=== PATIENT | female | born 1965 | race Caucasian/White ===

== ENCOUNTER 2017-02-19 13:19 | Emergency (ER) | payer OTHER ==
[~2017-02-19] VITALS: Ht 157.5 cm; Wt 58.5 kg
[2017-02-19] MEDS ORDERED: ESCITALOPRAM20 MG PO (13:32)
[2017-02-19] MEDS ORDERED: AMPHETAMINE SAL10 MG PO (13:32)
[2017-02-19] MEDS ORDERED: VITAMIN D31000 IU PO (13:33)
[2017-02-19] MEDS ORDERED: CENTRUM SILVER1 EAC1 PO (13:33)
--- NOTE | 2017-02-19 13:33 | Urgent Treatment Center Report ---
History of Present Issue Date/Time Seen by Provider 02/19/17 1337 Visit Reason Pt arrived:Walked Presenting Problem:PT STATES HAVING A COLD LAST WEEK. STATES NOW SHE IS HOARSE, COUGH, RUNNY NOSE WITH YELLOW DRAINAGE, BRENNA EAR FULLNESS AND HEAD CONGESTION Location if Accident: Onset of symptoms date/time:/ or onset unknown for:MEDICAL HX UNKNOWN Have you (or family members/close friends) recently traveled outside the [place]? N If Yes, where/when: Have you had exposure to infectious disease within the past month? TB? Other? Specify: Source patient Exam Limitations no limitations Comment 51-year-old female presents today for sore throat and green nasal congestion, sinus pressure, and hoarseness that started a few days ago. Has been exposed to strep ALLERGIES Coded Allergies: Macrolide Antibiotics (11/06/15) Penicillins (11/06/15) clarithromycin (From BIAXIN) (02/19/17) Home Medications Reported Medications Escitalopram Oxalate 20 MG PO DAILY #90 DEXTROAMPHETAMINE/AMPHETAMINE (Amphetamine Salts 10 MG Tablet) 10 MG PO DAILY #60 CHOLECALCIFEROL (VITAMIN D3) (Vitamin D) 1,000 IUNITS PO DAILY Multivits-Min/Iron/FA/Lutein (Centrum Silver Women Tablet) 1 EACH PO DAILY History Medical History General Angina: No SC: No Hypertension? No Hyperlipidemia? No CHF? No COPD? No Asthma? No Hernia? Yes CVA? No Seizures? No Diabetes? No UTI? Yes Stones? No GB Disease: No Hepatitis? No Cataracts? No Glaucoma? No TB? No Cancer? No Immunization HX DT/Tetanus > 10 YRS Flu LAST YEAR Pneumonia NEVER Surgical Hx Previous Surgery?Y HERNIA BRENNA ING DX LSC LASER, [facility] Family History Family HX Diabetes No CAD Yes Hypertension Yes Hyperlipidemia Yes Cancer Yes TB No Social History Alcohol Alcohol: No Review of Systems All Other Systems Reviewed and Negative ENT see HPI, nose congestion. Respiratory see HPI, cough Cardiovascular denies no symptoms reported Physical Exam Vital Signs Vital Signs Date Time Temp Pulse Resp B/P Pulse O2 O2 Flow FiO2 Ox Delivery Rate 02/19 1330 98.5 72 20 129/78 99 - WBC >12,000 or <4,000 or 10% bands? 2 or more SIRS Criteria Met? B/P:129/78 MAP:95 Creatinine >2.0? UA output<0.5ml/kg/hr for 2 hrs? Platelet count >100,000? Lactate >2.0mmol/1? INR >1.2 or PTT > than 60 sec? Evidence of Organ Dysfunction? Provider documented clinical suspician of infection? Sepsis Criteria Count: 1 Sepsis Risk: General Appearance normal appearance, no apparent distress Eye Exam - bilateral eye normal exam, bilateral eye PERRL, bilateral eye EOMI Ear, Nose, Throat sinus pain/drainage, nasal congestion, pharyngeal erythema Neck normal inspection, full range of motion Respiratory Status Yes: trachea midline, chest symmetrical, non tender chest. No: respiratory distress. Lung Sounds bilateral: normal breath sounds, lungs clear. Cardiovascular normal exam, regular rate/rhythm Neurologic alert, normal exam, oriented x 3 Medical Decision Making LABS/Meds/Orders Pt receiving controlled substance in ED? No Results/Orders Current Medication Orders Sig/Seamus Start time Last Medication Dose Route Stop Time Status Admin Dexamethasone Sodium 4 MG ONCE ONE 02/19 1345 AC 02/19 Phosphate IM 02/19 1346 1344 Dexamethasone Sodium 0 .STK-MED ONE 02/19 1343 DC Phosphate .ROUTE Departure Departure Time of Disposition 1340 Disposition DC Home or Self Care(routine) Clinical Impression Primary Impression: Sinusitis Qualifiers: Sinusitis location: maxillary Chronicity: acute Recurrence: non- recurrent Qualified Code: J01.00 - Acute maxillary sinusitis, unspecified Condition STABLE Referrals Mark NAVA,Jabari Carroll (Family) Patient Instructions DI for Sinusitis, Sinusitis Additional Instructions Starts to repack tomorrow Medications as ordered Follow-up primary care this week if symptoms don't improve Tylenol Motrin as needed for pain or fever Return to be seen in the ER if symptoms worsen or do not improve Discharge Counseling Counseled pt/family regarding diagnosis, medications/RX, home care, follow up needs Prescriptions Current Visit Scripts Azithromycin (Zithromax) 250 MG PO DAILY 5 Days USE DIRECTED. Fluticasone Propionate (Flonase Allergy Relief) 9.9 ML NS DAILY 14 Days
[2017-02-19] MEDS ORDERED: ZITHROMAX Z-PA250 M2 PO (13:44)
[2017-02-19] MEDS ORDERED: FLONASE ALLERG9.9 ML NS (13:44)
[2017-02-19 13:49] VITALS: BP 129/78
== END 2017-02-19 14:01 | disposition home or self-care (01) ==
LOC: UTC 13:19
DX: J01.00 Acute maxillary sinusitis, unspecified (principal)

== ENCOUNTER → 2017-05-01 | Emergency (ER) | payer OTHER ==
[~2017-05-01] VITALS: Ht 157.5 cm; Wt 61.2 kg
[~2017-05-01] MED LIST: AMPHETAMINE SAL10 MG PO; CENTRUM SILVER1 EAC1 PO; ESCITALOPRAM20 MG PO; FLONASE ALLERG9.9 ML NS; PROMETHAZINE D118 ML PO; VITAMIN D31000 IU PO; ZITHROMAX Z-PA250 M2 PO
--- OUTSIDE RECORDS SUMMARY | 2017-05-01 14:46 | External Medical Summary Rpt | CCD ---
Author Author , GISELLE DESAI Address Unknown Phone [email or web address] Immunization Name Date Rout CVX Reac Dose Comm Prov Is Faci e tion ent ider Refu lity Give sed n Infl 10-2 150 0.5 Hist GSHA No GSHA uenz 0-20 mL oric NE NE a 17 al Quad Info Inj rmat ion - Sour ce Unsp ecif ied Td 03-0 Intr 9 999 Hist H149 No H149 (jagdish 9-19 amus oric lt), 97 cula al r Info adso rmat rbed ion - Sour ce Unsp ecif ied
--- OUTSIDE RECORDS SUMMARY | 2017-05-01 14:46 | External Medical Summary Rpt | CCD ---
Author Author , MAXIMO DESAI Address Unknown Phone .[employer] Purpose Continuity of Care Document - 10-29-2016 through 2016 Results Labs Lab Lab Date Result Refere Interp Status Commen Order Detail nces retati t Range on Drugs identified in Urine by Screen method (10-29-2016 10:20) Ampheta NEGATIV <1000 complet mine 017 E ed [Presen 10:20 ce] in Urine by Screen method NEGATIV <50 complet oxy 017 E ed delta-9 10:20 tetrahy drocann abinol [Presen ce] in Unspeci fied specime n
--- OUTSIDE RECORDS SUMMARY | 2017-05-01 14:46 | External Medical Summary Rpt ---
Author Author GISELLE Gray, [employer] Organization [employer] Address Unknown Phone Unavailable Results Drugs identified in Urine by Screen method Observa Value Referen Units Interpr Notes Date tion ce etation Range Positive urine drug screen samples are stored for 7 days. Contact the Lab if confirmation of positives is needed. Ampheta NEGATIV <1000 ng/mL No No October 29 mine E informa informa 2017 [Presen tion in tion in 10:20 ce] in source source AM Urine data data by Screen method Barbitura <200 ng/mL No No October 29 lulu informati informati 2017 [Mass/vol on in on in 10:20 AM ume] in source source Urine by data data Screen method Benzodiaz 200 ng/mL ng/mL No No October 29 epines informati informati 2017 [Mass/vol on in on in 10:20 AM ume] in source source Serum or data data Plasma by Screen method Cocaine <300 ng/g No No October 29 [Mass/vol informati informati 2016 ume] in on in on in 10:20 AM Unspecifi source source ed data data specimen Methadone <300 ng/mL No No October 29 informati informati 2017 [Mass/vol on in on in 10:20 AM ume] in source source Unspecifi data data ed specimen Opiates <300 ng/mL No No October 29 [Mass/vol informati informati 2017 ume] in on in on in 10:20 AM Unspecifi source source ed data data specimen Phencycli <25 ng/mL No No October 29 dine informati informati 2016 [Mass/vol on in on in 10:20 AM ume] in source source Unspecifi data data ed specimen 11-Hydr NEGATIV <50 ng/mL No No October 29 oxy E informa informa 2017 delta-9 tion in tion in 10:20 source source AM tetrahy data data drocann abinol [Presen ce] in Unspeci fied specime n
--- OUTSIDE RECORDS SUMMARY | 2017-05-01 14:46 | External Medical Summary Rpt | CCD ---
Author Author , MAXIMO DESAI Address Unknown Phone [email or web address] Purpose Continuity of Care Document - 10-29-2016 [...]
--- OUTSIDE RECORDS SUMMARY | 2017-05-01 14:46 | External Medical Summary Rpt | CCD ---
Author Author , GISELLE DESAI Address Unknown Phone [email or web address] Immunization Name Date Rout CVX Reac Dose [...]
--- NOTE | 2017-05-01 15:32 | Urgent Treatment Center Report ---
History of Present Issue Date/Time Seen by Provider 05/01/17 1531 Visit Reason Pt arrived:Walked Presenting Problem:PT C/O COUGH AND DRAINAGE FOR THE PAST COUPLE OF DAYS Location if Accident: Onset of symptoms date/time:/ or onset unknown for:MEDICAL HX UNKNOWN Have you (or family members/close friends) recently traveled outside the [place]? N If Yes, where/when: Have you had exposure to infectious disease within the past month? TB? Other? Specify: c/o dry hacking cough at night. "I wouldn't be here if my would quit complaining". Cough starting 4-5 days ago w/ tickle in throat. Denies any other persistant or nagging symptoms. "Really just the cough". No SOA, wheezing, fever. Minimal cough throughout day. Waking pt up at night "but I just roll over and go back to sleep". Spouse not sleeping at all. Hasn't taken or tried anything for symptoms. No known sick contacts. Source patient Exam Limitations no limitations ALLERGIES Coded Allergies: Macrolide Antibiotics (11/06/15) Penicillins (11/06/15) clarithromycin (From BIAXIN) (02/19/17) Home Medications Reported Medications Escitalopram Oxalate 20 MG PO DAILY #90 DEXTROAMPHETAMINE/AMPHETAMINE (Amphetamine Salts 10 MG Tablet) 10 MG PO DAILY #60 History Medical History General CAD? No Angina: No MT: No Hypertension? No Hyperlipidemia? No CHF? No DVT? No PE? No COPD? No Asthma? No Anemia? No GERD? No Gastric ulcers? No GI Bleed? No Hernia? Yes Thyroid Problems? No Hypothyroidism? No CVA? No Seizures? No Diabetes? No Renal Insuffiency? No UTI? Yes Stones? No BPH? No GB Disease: No Nephritic Syndrome? No Asplenia? No Hepatitis? No Sickle Cell Disease? No Arthritis? No Migraines? No Cataracts? No Glaucoma? No MRSA? No HIV? No TB? No Anxiety? No Depression? No Cancer? No Immunization HX DT/Tetanus > 10 YRS Flu LAST YEAR Pneumonia NEVER Surgical Hx Previous Surgery?Y HERNIA BRENNA ING DX LSC LASER, [facility] Family History Family HX Diabetes No CAD Yes Hypertension Yes Hyperlipidemia Yes Cancer Yes TB No Social History Smoking Hx Smoker: Never Smoker Tobacco: No Alcohol Alcohol: No Review of Systems All Other Systems Reviewed and Negative Constitutional see HPI, denies chills, denies malaise ("I feel just fine") Eyes denies drainage ENT see HPI, nose discharge ("maybe a little here & There"). denies: ear pain, nose congestion, throat pain, throat swelling. Respiratory see HPI Cardiovascular denies chest pain Musculoskeletal denies joint pain Skin denies rash Psychiatric/Neurological denies headache Physical Exam Vital Signs Vital Signs Date Time Temp Pulse Resp B/P Pulse O2 O2 Flow FiO2 Ox Delivery Rate 05/01 1558 98.5 87 16 130/77 98 05/01 1519 98.5 87 16 130/77 98 General Appearance normal appearance, no apparent distress Eye Exam - bilateral eye normal exam Ear, Nose, Throat normal ENT inspection Neck non-tender, supple Respiratory Status Yes: trachea midline, non productive cough (once). No: respiratory distress, use of accessory muscles, pain on inspiration, pain on expiration. Lung Sounds anterior: lungs clear. posterior: lungs clear. bilateral: lungs clear. Cardiovascular regular rate/rhythm, no peripheral edema, no murmur Neurologic alert, oriented x 3 Mental status normal mood/affect Skin normal color, warm/dry Lymphatic no adenopathy Medical Decision Making LABS/Meds/Orders Pt receiving controlled substance in ED? No Departure Departure Time of Disposition 1554 Disposition DC Home or Self Care(routine) Clinical Impression Primary Impression: Cough Condition STABLE Referrals Mark NAVA,Jabari Carroll (Family) IMMEDIATELY for new or worsening symptoms OR no noticeable improvement with prescribed medication. 911 for difficulty breathing. Patient Instructions DI for Cough -- Adult Additional Instructions * Promethazine DM cough syrup will cause drowsiness. Use it only at night. No driving, operating machinery or caring for small children after taking it. * No sign of bacterial infection. Likely viral. Virus can take 7-14 days to run their course and the cough can be the last thing to fade * Be sure to follow up if fevers, shortness of breath or wheezing develops, cough changes to productive Discharge Counseling Counseled pt/family regarding diagnosis, medications/RX, home care, follow up needs Prescriptions Current Visit Scripts PROMETHAZINE/DEXTROMETHORPHAN (Promethazine-Dm Syrup) 10 ML PO QHSP PRN cough #120 ML will cause drowsiness at 1615
[2017-05-01 15:58] VITALS: BP 130/77
== END ==
LOC: UTC 14:34
DX: R05 Cough (principal)